=== PATIENT | male | born 2000 | race Caucasian/White ===

== ENCOUNTER 2021-07-05 11:15 | Emergency (ER) | payer OTHER ==
[~2021-07-05] VITALS: Ht 195.6 cm; Wt 128.0 kg
[2021-07-05] MEDS ORDERED: LIDOCAINE W/EPINEPHRINE 1% 20ML VIAL SC ONE (12:35)
[2021-07-05] MEDS ORDERED: BACI500O21 TOP (13:33)
[2021-07-05] MEDS ORDERED: NEOSPORIN OINT 0.9 GM PKT TOP ONE (13:35)
[2021-07-05 13:41] VITALS: BP 128/74
== END 2021-07-05 13:42 | disposition home or self-care (01) ==
LOC: M ED 11:15
DX: S01.81XA Laceration without foreign body of other part of head, initial encounter (principal); W22.09XA Striking against other stationary object, initial encounter; Y92.89 Other specified places as the place of occurrence of the external cause; Y93.9 Activity, unspecified; Y99.1 Military activity